=== PATIENT | male | born 1980 | race African-American/Black ===

== ENCOUNTER 2024-08-10 16:25 | Emergency (ER) | payer OTHER ==
[2024-08-10 16:53] VITALS: BP 142/89; PULSE 54; RESP 19; TEMP 97.3; BMI 27.6
[2024-08-10 18:38] LABS: THROAT:GRP A STREP NOT DETECTED (NOTDETECTED)
[2024-08-11 20:59] LABS: HIV INTERPRETATION NEGATIVE (NEGATIVE)
== END 2024-08-10 20:03 | disposition home or self-care (01) ==
LOC: JERFT 16:25
DX: J02.9 Acute pharyngitis, unspecified (principal); R06.02 Shortness of breath; R05.9 Cough, unspecified; R09.81 Nasal congestion; B34.9 Viral infection, unspecified
CPT/HCPCS: 0241U-QW; 36415; 71045-TC-FY; 86803; 87389; 87651; 99284-25